=== PATIENT | female | born 1985 | race Caucasian/White ===

== ENCOUNTER → 2024-05-04 | Outpatient (CLI) | payer OTHER, SELFPAY ==
--- NOTE | 2024-05-04 09:44 | RAD_ITS ---
STUDY: X-RAY - CERVICAL SPINE REASON FOR EXAM: Female, 38 years old. STRAIN OF MUSCLES AND TENDONS OF ROTATOR OF RIGHT SHOULDER TECHNIQUE: 5 view(s) of the cervical spine were obtained. COMPARISON: None FINDINGS: Normal anterior atlantoaxial articulation. Normal odontoid process. There is straightening of the normal cervical lordosis. Normal vertebral bodies and endplates. Normal disc space heights. Normal visualized intervertebral neuroforamina. The soft tissue structures are unremarkable. RAD/Cerv Spine 4 or 5 Views IMPRESSION: No acute fracture or subluxation. Straightening of the normal lordotic curvature possibly from muscular spasm. Electronically Signed: Mundo Combs MD at 10:12 [facility] ,
== END | disposition home or self-care (01) ==
PROVIDERS: PCP Family Medicine; Referring Provider Nurse Practitioner Family; Visit Provider Nurse Practitioner Family
DX: M25.512 Pain in left shoulder (principal); S46.011S Strain of muscle(s) and tendon(s) of the rotator cuff of right shoulder, sequela; X58.XXXS Exposure to other specified factors, sequela; Y99.0 Civilian activity done for income or pay
CPT/HCPCS: 72050